=== PATIENT | female | born 1970 | race Caucasian/White ===

== ENCOUNTER 2020-04-10 22:17 | Emergency (ER) | payer MEDICAID ==
[~2020-04-10] VITALS: Ht 162.6 cm; Wt 72.6 kg
[2020-04-10 22:46] VITALS: Ht 162.6 cm; Wt 72.6 kg
[2020-04-11 00:29] LABS: PLATELET COUNT 324 x10^3mcL (179-408)
[2020-04-11 00:32] LABS: RED CELL DISTRIBUTION WIDTH 15.4 % (12.3-17.7)
[2020-04-11 00:36] LABS: CALCIUM 9.7 mg/dL (8.5-10.1); CARBON DIOXIDE 24.2 mmol/L (21-32); CHLORIDE SERUM 92 mmol/L (98-107); CREATININE SERUM 0.7 mg/dL (0.6-1.0); GFR1 > 60 mL/min; GLUCOSE SERUM 425 mg/dL (74-106); POTASSIUM SERUM 4.1 mmol/L (3.5-5.1); SODIUM SERUM 126 mmol/L (136-145)
[2020-04-11 00:49] LABS: ALBUMIN 3.6 g/dL (3.4-5.0); ALKALINE PHOSPHATASE 118 U/L (46-116); ALT/SGPT 31 U/L (14-59); AST/SGOT 4 U/L (15-37); BILIRUBIN TOTAL 0.3 mg/dL (0.20-1.00)
[2020-04-11 02:41] VITALS: BP 115/71
== END 2020-04-11 02:41 | disposition home or self-care (01) ==
LOC: ED 22:17
PROVIDERS: Student in an Organized Health Care Education/Training Program
DX: E11.65 Type 2 diabetes mellitus with hyperglycemia (principal); R42 Dizziness and giddiness; R63.4 Abnormal weight loss
CPT/HCPCS: 82962; J1885; J7030